=== PATIENT | female | born 1955 | race Caucasian/White ===

== ENCOUNTER → 2018-08-17 | Outpatient (CLI) | payer OTHER, MEDICARE | LOC: FIMAGING 13:36 | PROVIDERS: ATTEND Family Medicine | DX: Z13.820 Encounter for screening for osteoporosis (principal); N95.9 Unspecified menopausal and perimenopausal disorder; E28.39 Other primary ovarian failure; M85.80 Other specified disorders of bone density and structure, unspecified site ==

== ENCOUNTER → 2018-10-02 | Outpatient (CLI) | payer OTHER, MEDICARE | LOC: BMCIMAGING 08:41 | PROVIDERS: ATTEND Family Medicine | DX: Z12.31 Encounter for screening mammogram for malignant neoplasm of breast (principal) ==

== ENCOUNTER → 2018-10-20 | Outpatient (CLI) | payer OTHER, MEDICARE | LOC: FIMAGING 14:52 | PROVIDERS: ATTEND Family Medicine | DX: R92.8 Other abnormal and inconclusive findings on diagnostic imaging of breast (principal); R92.0 Mammographic microcalcification found on diagnostic imaging of breast ==

== ENCOUNTER → 2018-11-07 | Outpatient (CLI) | payer OTHER, MEDICARE ==
[~2018-11-07] MED LIST: GADOBUTROL 10 ML VIAL IVP ONE
== END ==
LOC: FIMAGING 10:49
PROVIDERS: ATTEND Family Medicine
DX: R92.8 Other abnormal and inconclusive findings on diagnostic imaging of breast (principal)
CPT/HCPCS: 77047; A9585; 82565-PO

== ENCOUNTER → 2018-11-27 | Outpatient (CLI) | payer OTHER, MEDICARE ==
[~2018-11-27] MED LIST changes: +BUPIVACAINE 0.5% 30 ML SDV ONE; -GADOBUTROL 10 ML VIAL IVP ONE; +LIDOCAINE 1% 300 MG/30 ML SDV ONE
== END ==
LOC: FIMAGING 07:12
PROVIDERS: ATTEND Family Medicine
PROC: 0HBT3ZX Excision of Right Breast, Percutaneous Approach, Diagnostic (ICD-10-PCS; principal; 2018-11-27)
DX: R92.8 Other abnormal and inconclusive findings on diagnostic imaging of breast (principal); D05.81 Other specified type of carcinoma in situ of right breast

== ENCOUNTER 2018-12-19 06:32 | Day surgery (SDC) | payer OTHER, MEDICARE | END 2018-12-19 13:55 | disposition home or self-care (01) | LOC: FSGY 06:32 ==